=== PATIENT | male | born 1940 | race Caucasian/White ===

== ENCOUNTER 2016-06-23 14:47 | Emergency (ER) | payer OTHER ==
[~2016-06-23 14:47] MED LIST: HYDROCHLOROTHIA25 MG PO; LISINOPRIL40 MG PO; LOVASTATIN20 MG PO; PERCOCET1 TA1 PO; TYLENOL PM EXTR1 TAB PO
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
--- NOTE | 2016-06-23 19:00 | ED ORDER SUMMARY ---
..... Patient: MASSIEL ORTIZ OrderSheet [facility] VisitID: [id number] [place] [address] 76y, M Registration Date/Time: 06/23/2016 ORDER SHEET Weight: 90.7 kg (stated) Allergies: Bactrim GENERAL ORDERS: CBC w Diff Urgent (15:12 06/23/2016 Karson Merchant) (Ack 15:15 Jen) (15:42 Prernan R.N.) CMP Urgent (15:12 06/23/2016 Karson Merchant) (Ack 15:15 Jen) (15:42 Miek R.N.) EKG - ER Stat (16:24 06/23/2016 Karson Merchant) (Ack 16:30 Jen) (16:44 Mike R.N.) MEDICATION ORDERS: Prednisone PO 40 mg (NOW) (15:12 06/23/2016 Karson Merchant) (15:31 Mike R.N.) IV FLUIDS: IV NS : initial bolus none -, then 1000 mL/hr for X1 (NOW) (16:24 06/23/2016 Karson Merchant) (17:08 Mike R.N.) Benadryl IV 25 mg (NOW) (16:24 06/23/2016 Karson Merchant) (16:45 Mike R.N.) Solu-MEDROL IV 125 mg (NOW) (17:12 06/23/2016 Karson Merchant) (17:19 Mike R.N.) ORDER SHEET NOTES: [Electronically signed by Fabien Mosley Dr. (19:00 06/23/2016)] [Electronically signed by Jessi Mccoy R.N. (19:34 06/23/2016)] [Electronically locked/signed by Jessi Mccoy R.N. (19:34 06/23/2016)]
--- NOTE | 2016-06-23 19:00 | ED ORDER SUMMARY ---
..... Patient: MASSIEL ORTIZ OrderSheet [facility] VisitID: [id number] [place] [address] 76y, M Registration Date/Time: 06/23/2016 ORDER SHEET Weight: 90.7 kg (stated) Allergies: Bactrim GENERAL ORDERS: CBC w Diff Urgent (15:12 06/23/2016 Karson Merchant) (Ack 15:15 Jen) (15:42 Prernan R.N.) CMP Urgent (15:12 06/23/2016 Karson Merchant) (Ack 15:15 Jen) (15:42 Mike R.N.) EKG - ER Stat (16:24 06/23/2016 Karson Merchant) (Ack 16:30 Jen) (16:44 Mike R.N.) MEDICATION ORDERS: Prednisone PO 40 mg (NOW) (15:12 06/23/2016 Karson Merchant) (15:31 Mike R.N.) IV FLUIDS: IV NS : initial bolus none -, then 1000 mL/hr for X1 (NOW) (16:24 06/23/2016 Karson Merchant) (17:08 Mike R.N.) Benadryl IV 25 mg (NOW) (16:24 06/23/2016 Karson Merchant) (16:45 Mike R.N.) Solu-MEDROL IV 125 mg (NOW) (17:12 06/23/2016 Karson Merchant) (17:19 Mike R.N.) ORDER SHEET NOTES: [Electronically signed by Fabien Mosley Dr. (19:00 06/23/2016)] [Electronically signed by Jessi Mccoy R.N. (19:34 06/23/2016)] [Electronically locked/signed by Jessi Mccoy R.N. (19:34 06/23/2016)]
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
--- NOTE | 2016-06-23 19:34 | ED MED RECONCILIATION SUMMARY ---
Patient: MASSIEL ORTIZ Medication Reconciliation Report [facility] VisitID: [id number] [address] [place] [address] 76y, M Registration Date/Time: 06/23/2016 Weight: 90.7 kg Height/Length: 66 in. BMI: 32.3 ALLERGIES: Bactrim The patient's Home Medications are listed below: STOP TAKING THE FOLLOWING MEDICATIONS: Hydrochlorothiazide Oral Lisinopril Oral CONTINUE TAKING THE FOLLOWING MEDICATIONS: Lovastatin Oral The source(s) of the original Home Medication information: patient The following Medications were given to the patient in the Emergency Department: Prednisone [PO] PO 40 mg, administered: 06/23/2016 3:21:00 PM Benadryl [IVP] IVP 25 mg, administered: 06/23/2016 4:35:00 PM IV NS IV Fluids bolus 0, then 1000 mL/hr, administered: 06/23/2016 5:03:00 PM SOLU-MEDROL [IVP] IVP 120 mg, administered: 06/23/2016 5:19:00 PM The following Medications were prescribed to the patient: Hydroxyzine 50 mg: take 1 orally every 6 hours as needed for itching or sleep. Dispense thirty (30). No refill. -- Fabien Mosley Dr.
--- NOTE | 2016-06-23 19:34 | ED MED RECONCILIATION SUMMARY ---
Patient: MASSIEL ORTIZ Medication Reconciliation Report [facility] VisitID: [id number] [address] [place] [address] 76y, M Registration Date/Time: 06/23/2016 Weight: 90.7 kg Height/Length: 66 in. BMI: 32.3 ALLERGIES: Bactrim The patient's Home Medications are listed below: STOP TAKING THE FOLLOWING MEDICATIONS: Hydrochlorothiazide Oral Lisinopril Oral CONTINUE TAKING THE FOLLOWING MEDICATIONS: Lovastatin Oral The source(s) of the original Home Medication information: patient The following Medications were given to the patient in the Emergency Department: Prednisone [PO] PO 40 mg, administered: 06/23/2016 3:21:00 PM Benadryl [IVP] IVP 25 mg, administered: 06/23/2016 4:35:00 PM IV NS IV Fluids bolus 0, then 1000 mL/hr, administered: 06/23/2016 5:03:00 PM SOLU-MEDROL [IVP] IVP 120 mg, administered: 06/23/2016 5:19:00 PM The following Medications were prescribed to the patient: Hydroxyzine 50 mg: take 1 orally every 6 hours as needed for itching or sleep. Dispense thirty (30). No refill. -- Fabien Mosley Dr.
--- NOTE | 2016-06-23 19:34 | ED MAR SUMMARY ---
..... Medication Administration Record [facility] [address] [place] [address] Patient: MASSIEL ORTIZ Visit ID: [id number] 76y, M Weight: 90.7 kg Height/Length: 66 in BMI: 32.3 ALLERGIES: Bactrim Given 15:21 06/23/2016 Jessi Mccoy R.N. Medication Administered: PREDNISONE [PO], Dose: 40 mg PO. Medication Ordered: Prednisone PO 40 mg (NOW). Given 16:35 06/23/2016 Jessi Mccoy R.N. Medication Administered: BENADRYL [IVP] (DIPHENHYDRAMINE HCL), Dose: 25 mg IVP over 30 second(s), Site: #1 right AC. Medication Ordered: Benadryl IV 25 mg (NOW). Start 17:03 06/23/2016 Jessi Mccoy R.N., Stop 18:36 06/23/2016 Jessi Mccoy R.N. Medication Administered: IV NS (SALINE), Dose: IV Fluids over 1 hour(s), Rate: 1000 mL/hr, Dispensed: 1000 mL bag, Site: #2 left wrist. Medication Ordered: IV NS : initial bolus none -, then 1000 mL/hr for X1 (NOW). Given 17:19 06/23/2016 Jessi Mccoy R.N. Medication Administered: SOLU-MEDROL [IVP] (METHYLPREDNISOLONE SODIUM SUCC), Dose: 120 mg IVP over 2 minute(s), Site: #2 left wrist. Medication Ordered: Solu-MEDROL IV 125 mg (NOW).
--- NOTE | 2016-06-23 19:34 | ED DISCHARGE INSTRUCTIONS ---
Patient: MASSIEL ORTIZ General Instructions [facility] VisitID: [id number] [place] [address] 76y, M Registration Date/Time: 06/23/2016 Generalized drug rash due to oral sulfa. Moderate chronic renal failure. INSTRUCTIONS (Monitor your blood pressure. Call your doctor if it is more than 160 on the top or 100 on the bottom.). Your Current Medications: STOP TAKING THE FOLLOWING MEDICATIONS: Lisinopril Oral. Hydrochlorothiazide Oral. CONTINUE TAKING THE FOLLOWING MEDICATIONS: Lovastatin Oral. Prescription Medications: Hydroxyzine 50 mg: take 1 orally every 6 hours as needed for itching or sleep. Dispense thirty (30). No refill. Follow-up: Follow up with your doctor 9:30 Monday. Blood pressure screening was not performed during this visit because the patient has an active diagnosis of hypertension. ADDITIONAL INFORMATION Drug Reaction: Allergic You are having an allergic reaction to a drug you have taken. This causes an itchy rash and sometimes swelling of various parts of the body. It may also cause trouble swallowing or breathing. The rash may take a few hours or up to two weeks to go away. In the future, remember to tell your doctor about your allergy to this drug so that drugs of this type won't be used again. Home Care: 1) Throw the drug away and do not take it again. The next reaction may be much worse. 2) Avoid tight clothing and anything that heats up your skin (hot showers/baths, direct sunlight) since heat will make itching worse. 3) An ice pack (ice cubes in a plastic bag, wrapped in a towel) will relieve local areas of intense itching and redness. Lanacaine cream or Solarcaine spray (or other product containing "benzocaine") will reduce the itching. 4) Avoid scratching which may worsen the reaction, damage your skin and lead to an infection. 5) Oral Benadryl (diphenhydramine) is an antihistamine available at drug and grocery stores. Unless a prescription antihistamine was given, Benadryl may be used to reduce itching if large areas of the skin are involved. Use lower doses during the daytime and higher doses at bedtime since the drug may make you sleepy. [NOTE: Do not use Benadryl if you have glaucoma or if you are a man with trouble urinating due to an enlarged prostate.] Claritin (loratadine) is an antihistamine that causes less drowsiness and is a good alternative for daytime use. Follow Up with your doctor or this facility in the next two days if your symptoms do not continue to improve. Get Prompt Medical Attention if any of the following occur: -- Wheezing, shortness of breath or difficulty swallowing -- Increased swelling in the face, eyelids, mouth, lips, tongue or throat -- Dizziness, weakness or fainting Chronic Renal Failure The role of the kidneys is to remove waste products and excess water from the blood. When the kidneys do not function normally and waste products begin to build up in the blood, this is called renal insufficiency. When it is advanced, it is called chronic renal failure or end-stage renal disease.Chronic renal failure allows excess water, waste and toxic substances to build up in the body. This can eventually become life-threatening, requiring dialysis or a kidney transplant to stay alive. Diabetes is the leading causes of chronic renal failure. Other causes include high blood pressure, hardening of the arteries (atherosclerosis), lupus, inflammation of the blood vessels (vasculitis), prior viral and bacterial infections, and others. Certain nxeo-vgs-rjxbuxz pain medicines can cause renal failure when taken often over a long period of time. These include aspirin, ibuprofen (Advil, Motrin) and related anti-inflammatory medicines. Home Care: If you have diabetes, talk to your doctor about the quality of your blood sugar control and any adjustments needed to your diet. If you have high blood pressure: Take prescribed medicine to lower your blood pressure to normal (130/80 mm Hg). Take up a regular exercise program that you enjoy.Check with your doctor to be sure your planned exercise program is right for you. Reduce your salt (sodium) intake.Your doctor can tell you how much salt per day is safe for you. If you are overweight, talk to your doctor about a weight loss plan. If you smoke, you must quit. Smoking worsens kidney disease.Talk to your doctor about ways to help you quit. For more information, visit the following links: www.smokefree.gov/pubs/clearing_the_air.pdf www.smokefree.gov www.quitnet.com All patients with chronic renal failure need to follow a special diet. Be sure you understand yours. In general, you will need to restrict protein, salt, potassium and phosphorus.You also need to limit fluid intake.A calcium supplement will be prescribed to protect your bones from osteoporosis. Avoid the following over the counter medicines, or consult your doctor before using: Aspirin and anti-inflammatory drugs such as ibuprofen (Advil, Motrin), naprosyn (Aleve); [Short term use of acetaminophen (Tylenol) for fever or pain is okay.] Laxatives and antacids containing magnesium or aluminum (Mylanta, Maalox) Fleet or phosphosoda enemas containing phosphorus Certain stomach acid-blocking medicine such as cimetidine (Tagamet), ranitidine (Zantac) Decongestants containing pseudoephedrine (such as some forms of Sudafed or Actifed) Herbal supplements Follow Up with your doctor or as advised by our staff. Contact one of the following for more information. [place] [employer] Patients www.aakp.org National Kidney Foundation www.kidney.org [NOTE: If an X-ray or EKG (cardiogram) was made, another specialist will review it. You will be notified of any new findings that may affect your care.] Return Promptly or contact your doctor if any of the following occurs: Nausea or vomiting Severe weakness, dizziness, fainting, drowsiness or confusion Chest pain or shortness of breath Unexpected weight gain or swelling in the legs, ankles or around the eyes Heart beating fast, slow or irregularly Decrease or absent urine output Hydroxyzine Pamoate Oral capsule What is this medicine? HYDROXYZINE (ventura DROX i zeen) is an antihistamine. This medicine is used to treat allergy symptoms. It is also used to treat anxiety and tension. This medicine can be used with other medicines to induce sleep before surgery. How should I use this medicine? Take this medicine by mouth with a full glass of water. Follow the directions on the prescription label. You may take this medicine with food or on an empty stomach. Take your medicine at regular intervals. Do not take your medicine more often than directed. Talk to your guest relation officer regarding the use of this medicine in children. Special care may be needed. While this drug may be prescribed for children as young as 6 years of age for selected conditions, precautions do apply. Patients over 65 years old may have a stronger reaction and need a smaller dose. What side effects may I notice from receiving this medicine? Side effects that you should report to your doctor or health livestock caretaker as soon as possible: fast or irregular heartbeat difficulty passing urine seizures slurred speech or confusion tremor Side effects that usually do not require medical attention (report to your doctor or health livestock caretaker if they continue or are bothersome): constipation drowsiness fatigue headache stomach upset What may interact with this medicine? alcohol barbiturate medicines for sleep or seizures medicines for colds, allergies medicines for depression, anxiety, or emotional disturbances medicines for pain medicines for sleep muscle relaxants What if I miss a dose? If you miss a dose, take it as soon as you can. If it is almost time for your next dose, take only that dose. Do not take double or extra doses. Where should I keep my medicine? Keep out of the reach of children. Store at room temperature between 15 and 30 degrees C (59 and 86 degrees F). Keep container tightly closed. Throw away any unused medicine after the expiration date. What should I tell my health care provider before I take this medicine? They need to know if you have any of these conditions: any chronic illness difficulty passing urine glaucoma heart disease kidney disease liver disease lung disease an unusual or allergic reaction to hydroxyzine, cetirizine, other medicines, foods, dyes, or preservatives or trying to get breast-feeding What should I watch for while using this medicine? Tell your doctor or health livestock caretaker if your symptoms do not improve. You may get drowsy or dizzy. Do not drive, use machinery, or do anything that needs mental alertness until you know how this medicine affects you. Do not stand or sit up quickly, especially if you are an older patient. This reduces the risk of dizzy or fainting spells. Alcohol may interfere with the effect of this medicine. Avoid alcoholic drinks. Your mouth may get dry. Chewing sugarless gum or sucking hard candy, and drinking plenty of water may help. Contact your doctor if the problem does not go away or is severe. This medicine may cause dry eyes and blurred vision. If you wear contact lenses you may feel some discomfort. Lubricating drops may help. See your eye doctor if the problem does not go away or is severe. If you are receiving skin tests for allergies, tell your doctor you are using this medicine. You have been given the following additional information: Allergic Reaction, Drug Chronic Renal Failure Hydroxyzine Pamoate Oral capsule (Electronically signed by Fabien Mosley Dr. 06/23/2016 19:00)
--- NOTE | 2016-06-23 19:34 | ED MAR SUMMARY ---
..... Medication Administration Record [facility] [address] [place] [address] Patient: MASSIEL ORTIZ Visit ID: [id number] 76y, M Weight: 90.7 kg Height/Length: 66 in BMI: 32.3 ALLERGIES: Bactrim Given 15:21 06/23/2016 Jessi Mccoy R.N. Medication Administered: PREDNISONE [PO], Dose: 40 mg PO. Medication Ordered: Prednisone PO 40 mg (NOW). Given 16:35 06/23/2016 Jessi Mccoy R.N. Medication Administered: BENADRYL [IVP] (DIPHENHYDRAMINE HCL), Dose: 25 mg IVP over 30 second(s), Site: #1 right AC. Medication Ordered: Benadryl IV 25 mg (NOW). Start 17:03 06/23/2016 Jessi Mccoy R.N., Stop 18:36 06/23/2016 Jessi Mccoy R.N. Medication Administered: IV NS (SALINE), Dose: IV Fluids over 1 hour(s), Rate: 1000 mL/hr, Dispensed: 1000 mL bag, Site: #2 left wrist. Medication Ordered: IV NS : initial bolus none -, then 1000 mL/hr for X1 (NOW). Given 17:19 06/23/2016 Jessi Mccoy R.N. Medication Administered: SOLU-MEDROL [IVP] (METHYLPREDNISOLONE SODIUM SUCC), Dose: 120 mg IVP over 2 minute(s), Site: #2 left wrist. Medication Ordered: Solu-MEDROL IV 125 mg (NOW).
--- NOTE | 2016-06-23 19:34 | ED DISCHARGE INSTRUCTIONS ---
Patient: MASSIEL ORTIZ General Instructions [facility] VisitID: [id number] [place] [address] 76y, M Registration Date/Time: 06/23/2016 Generalized drug rash due to oral sulfa. Moderate chronic renal failure. INSTRUCTIONS (Monitor your blood pressure. Call your doctor if it is more than 160 on the top or 100 on the bottom.). Your Current Medications: STOP TAKING THE FOLLOWING MEDICATIONS: Lisinopril Oral. Hydrochlorothiazide Oral. CONTINUE TAKING THE FOLLOWING MEDICATIONS: Lovastatin Oral. Prescription Medications: Hydroxyzine 50 mg: take 1 orally every 6 hours as needed for itching or sleep. Dispense thirty (30). No refill. Follow-up: Follow up with your doctor 9:30 Monday. Blood pressure screening was not performed during this visit because the patient has an active diagnosis of hypertension. ADDITIONAL INFORMATION Drug Reaction: Allergic You are having an allergic reaction to a drug you have taken. This causes an itchy rash and sometimes swelling of various parts of the body. It may also cause trouble swallowing or breathing. The rash may take a few hours or up to two weeks to go away. In the future, remember to tell your doctor about your allergy to this drug so that drugs of this type won't be used again. Home Care: 1) Throw the drug away and do not take it again. The next reaction may be much worse. 2) Avoid tight clothing and anything that heats up your skin (hot showers/baths, direct sunlight) since heat will make itching worse. 3) An ice pack (ice cubes in a plastic bag, wrapped in a towel) will relieve local areas of intense itching and redness. Lanacaine cream or Solarcaine spray (or other product containing "benzocaine") will reduce the itching. 4) Avoid scratching which may worsen the reaction, damage your skin and lead to an infection. 5) Oral Benadryl (diphenhydramine) is an antihistamine available at drug and grocery stores. Unless a prescription antihistamine was given, Benadryl may be used to reduce itching if large areas of the skin are involved. Use lower doses during the daytime and higher doses at bedtime since the drug may make you sleepy. [NOTE: Do not use Benadryl if you have glaucoma or if you are a man with trouble urinating due to an enlarged prostate.] Claritin (loratadine) is an antihistamine that causes less drowsiness and is a good alternative for daytime use. Follow Up with your doctor or this facility in the next two days if your symptoms do not continue to improve. Get Prompt Medical Attention if any of the following occur: -- Wheezing, shortness of breath or difficulty swallowing -- Increased swelling in the face, eyelids, mouth, lips, tongue or throat -- Dizziness, weakness or fainting Chronic Renal Failure The role of the kidneys is to remove waste products and excess water from the blood. When the kidneys do not function normally and waste products begin to build up in the blood, this is called renal insufficiency. When it is advanced, it is called chronic renal failure or end-stage renal disease.Chronic renal failure allows excess water, waste and toxic substances to build up in the body. This can eventually become life-threatening, requiring dialysis or a kidney transplant to stay alive. Diabetes is the leading causes of chronic renal failure. Other causes include high blood pressure, hardening of the arteries (atherosclerosis), lupus, inflammation of the blood vessels (vasculitis), prior viral and bacterial infections, and others. Certain uyks-kao-rezgbsa pain medicines can cause renal failure when taken often over a long period of time. These include aspirin, ibuprofen (Advil, Motrin) and related anti-inflammatory medicines. Home Care: If you have diabetes, talk to your doctor about the quality of your blood sugar control and any adjustments needed to your diet. If you have high blood pressure: Take prescribed medicine to lower your blood pressure to normal (130/80 mm Hg). Take up a regular exercise program that you enjoy.Check with your doctor to be sure your planned exercise program is right for you. Reduce your salt (sodium) intake.Your doctor can tell you how much salt per day is safe for you. If you are overweight, talk to your doctor about a weight loss plan. If you smoke, you must quit. Smoking worsens kidney disease.Talk to your doctor about ways to help you quit. For more information, visit the following links: www.smokefree.gov/pubs/clearing_the_air.pdf www.smokefree.gov www.quitnet.com All patients with chronic renal failure need to follow a special diet. Be sure you understand yours. In general, you will need to restrict protein, salt, potassium and phosphorus.You also need to limit fluid intake.A calcium supplement will be prescribed to protect your bones from osteoporosis. Avoid the following over the counter medicines, or consult your doctor before using: Aspirin and anti-inflammatory drugs such as ibuprofen (Advil, Motrin), naprosyn (Aleve); [Short term use of acetaminophen (Tylenol) for fever or pain is okay.] Laxatives and antacids containing magnesium or aluminum (Mylanta, Maalox) Fleet or phosphosoda enemas containing phosphorus Certain stomach acid-blocking medicine such as cimetidine (Tagamet), ranitidine (Zantac) Decongestants containing pseudoephedrine (such as some forms of Sudafed or Actifed) Herbal supplements Follow Up with your doctor or as advised by our staff. Contact one of the following for more information. [place] [employer]ney Patients www.aakp.org National Kidney Foundation www.kidney.org [NOTE: If an X-ray or EKG (cardiogram) was made, another specialist will review it. You will be notified of any new findings that may affect your care.] Return Promptly or contact your doctor if any of the following occurs: Nausea or vomiting Severe weakness, dizziness, fainting, drowsiness or confusion Chest pain or shortness of breath Unexpected weight gain or swelling in the legs, ankles or around the eyes Heart beating fast, slow or irregularly Decrease or absent urine output Hydroxyzine Pamoate Oral capsule What is this medicine? HYDROXYZINE (ventura DROX i zeen) is an antihistamine. This medicine is used to treat allergy symptoms. It is also used to treat anxiety and tension. This medicine can be used with other medicines to induce sleep before surgery. How should I use this medicine? Take this medicine by mouth with a full glass of water. Follow the directions on the prescription label. You may take this medicine with food or on an empty stomach. Take your medicine at regular intervals. Do not take your medicine more often than directed. Talk to your hand hide stretcher regarding the use of this medicine in children. Special care may be needed. While this drug may be prescribed for children as young as 6 years of age for selected conditions, precautions do apply. Patients over 65 years old may have a stronger reaction and need a smaller dose. What side effects may I notice from receiving this medicine? Side effects that you should report to your doctor or health acute care clinical nurse specialist as soon as possible: fast or irregular heartbeat difficulty passing urine seizures slurred speech or confusion tremor Side effects that usually do not require medical attention (report to your doctor or health acute care clinical nurse specialist if they continue or are bothersome): constipation drowsiness fatigue headache stomach upset What may interact with this medicine? alcohol barbiturate medicines for sleep or seizures medicines for colds, allergies medicines for depression, anxiety, or emotional disturbances medicines for pain medicines for sleep muscle relaxants What if I miss a dose? If you miss a dose, take it as soon as you can. If it is almost time for your next dose, take only that dose. Do not take double or extra doses. Where should I keep my medicine? Keep out of the reach of children. Store at room temperature between 15 and 30 degrees C (59 and 86 degrees F). Keep container tightly closed. Throw away any unused medicine after the expiration date. What should I tell my health care provider before I take this medicine? They need to know if you have any of these conditions: any chronic illness difficulty passing urine glaucoma heart disease kidney disease liver disease lung disease an unusual or allergic reaction to hydroxyzine, cetirizine, other medicines, foods, dyes, or preservatives or trying to get breast-feeding What should I watch for while using this medicine? Tell your doctor or health acute care clinical nurse specialist if your symptoms do not improve. You may get drowsy or dizzy. Do not drive, use machinery, or do anything that needs mental alertness until you know how this medicine affects you. Do not stand or sit up quickly, especially if you are an older patient. This reduces the risk of dizzy or fainting spells. Alcohol may interfere with the effect of this medicine. Avoid alcoholic drinks. Your mouth may get dry. Chewing sugarless gum or sucking hard candy, and drinking plenty of water may help. Contact your doctor if the problem does not go away or is severe. This medicine may cause dry eyes and blurred vision. If you wear contact lenses you may feel some discomfort. Lubricating drops may help. See your eye doctor if the problem does not go away or is severe. If you are receiving skin tests for allergies, tell your doctor you are using this medicine. You have been given the following additional information: Allergic Reaction, Drug Chronic Renal Failure Hydroxyzine Pamoate Oral capsule (Electronically signed by Fabien Mosley Dr. 06/23/2016 19:00)
== END 2016-06-23 19:30 | disposition home or self-care (01) ==
LOC: ED SRH 14:47
DX: L27.1 Localized skin eruption due to drugs and medicaments taken internally (principal); T37.0X5A Adverse effect of sulfonamides, initial encounter; N18.3 Chronic kidney disease, stage 3 (moderate); I12.9 Hypertensive chronic kidney disease with stage 1 through stage 4 chronic kidney disease, or unspecified chronic kidney disease; Z87.891 Personal history of nicotine dependence